=== PATIENT | male | born 1980 | race Caucasian/White ===

== ENCOUNTER → 2017-09-10 | Outpatient (CLI) | payer OTHER, MEDICARE | LOC: M SMT 13:35 | DX: M54.5 Low back pain (principal) ==

== ENCOUNTER 2017-10-13 12:07 | Emergency (ER) | payer MEDICARE, OTHER | END 2017-10-13 14:58 | disposition home or self-care (01) | LOC: M ED 12:07 | DX: M25.511 Pain in right shoulder (principal); R07.89 Other chest pain; G89.29 Other chronic pain; I10 Essential (primary) hypertension; G47.33 Obstructive sleep apnea (adult) (pediatric); K50.90 Crohn's disease, unspecified, without complications; F33.9 Major depressive disorder, recurrent, unspecified; E07.9 Disorder of thyroid, unspecified; Z88.0 Allergy status to penicillin; Z79.890 Hormone replacement therapy; Z79.899 Other long term (current) drug therapy | CPT/HCPCS: 71046 ==

== ENCOUNTER → 2018-06-24 | Outpatient (REF) ==
[~2018-06-24] MED LIST: HYDR-3715 PO; LEVO75TA4 PO; LISI40TA PO; MELO15TA28; PRAZ5CAP; ROBA500T PO; TRAZ-160; VENL75CA47; ZOLP10TA2
--- NOTE | 2018-06-25 16:16 | REP ---
LUMBOSACRAL SPINE: Three views of the lumbosacral spine are performed. There is no compression fracture or malalignment. There is no spondylolysis or spondylolisthesis. Disc spaces are well preserved. Posterior elements appear intact. IMPRESSION: Negative lumbosacral spine series. Electronically Signed by Les Rivera MD 06/26/2018 12:29 P
== END ==
LOC: M SMT 11:34
PROVIDERS: ATTEND Internal Medicine
DX: M51.36 Other intervertebral disc degeneration, lumbar region (principal)

== ENCOUNTER → 2018-07-28 | Outpatient (CLI) | payer MEDICARE, OTHER ==
[~2018-07-28] MED LIST changes: -TRAZ-160; +TRAZ-252
[2018-07-28 11:13] LABS: HEMATOCRIT 50.2 % (42.0-52.0); HEMOGLOBIN 17.2 g/dl (13.5-17.5); MEAN CORPUSCULAR HEMOGLOBIN 29.9 pg (27.0-33.0); MEAN CORPUSCULAR HGB CONC 34.3 g/dl (32.0-36.5); MEAN CORPUSCULAR VOLUME 87.2 fl (80.0-96.0); PLATELET COUNT, AUTOMATED 188 10^3/uL (150-450); RED BLOOD COUNT 5.76 10^6/uL (4.30-6.10)
--- NOTE | 2018-07-28 11:18 | REP ---
Chest two views HISTORY: Hypertension Comparison: 10/13/2017 The lungs are clear. The heart is normal in size. The pulmonary vasculature is normal in appearance. The bony structure is intact. IMPRESSION: No acute disease. Electronically Signed by Jean Barajas MD 07/28/2018 11:10 A
[2018-07-28 11:50] LABS: ALBUMIN 4.2 GM/DL (3.2-5.2); ALT/SGPT 56 U/L (12-78); BILIRUBIN,TOTAL 0.6 MG/DL (0.2-1.0); BLOOD UREA NITROGEN 11 MG/DL (7-18); CALCIUM LEVEL 9.3 MG/DL (8.5-10.1); CARBON DIOXIDE LEVEL 30 MEQ/L (21-32); CHLORIDE LEVEL 106 MEQ/L (98-107); CHOLESTEROL LEVEL 190 MG/DL (<200); CHOLESTEROL RISK RATIO 5.277 (<5); CREATININE FOR GFR 0.92 MG/DL (0.70-1.30); GLOMERULAR FILTRATION RATE > 60.0 (>60); GLUCOSE, FASTING 101 MG/DL (70-100); HDL CHOLESTEROL 36 MG/DL (>40); LDL CHOLESTEROL 104 MG/DL (<100); NON-HDL-C 154 MG/DL; POTASSIUM SERUM 4.6 MEQ/L (3.5-5.1); PROSTATIC SPECIFIC AG MONITOR 0.76 NG/ML (< 4.00); SODIUM LEVEL 142 MEQ/L (136-145); TESTOSTERONE 529 NG/DL (241-827); THYROXINE (T4) 5.6 UG/DL (4.5-12.0); TOTAL PROTEIN 7.4 GM/DL (6.4-8.2); TOTAL T3 93.3 NG/DL (60.0-181.0); TRIGLYCERIDES LEVEL 252 MG/DL (<150)
[2018-07-28 13:50] LABS: HEMOGLOBIN A1c 5.8 %
--- NOTE | 2018-07-28 20:51 | ECGEPIP ---
[facility] Test Date: 2018-07-28 Pat Name: SALBADOR GALDAMEZ Department: Room: - Gender: Male [employer]: : [id number] Requested By: Zuleyka Lopez Order Number: [id number] Reading MD: Cristobal Ralph Measurements Intervals [place] Rate: 66 P: 35 ME: 190 QRS: 37 QRSD: 96 T: 44 QT: 389 QTc: 409 Interpretive Statements SINUS RHYTHM Normal Electronically Signed on 07-28-2018 20:51:07 EDT by Cristobal Ralph
== END ==
LOC: M LAB 10:21
PROVIDERS: ATTEND Family Medicine
DX: I10 Essential (primary) hypertension (principal); R53.83 Other fatigue; E03.9 Hypothyroidism, unspecified

== ENCOUNTER → 2019-03-04 | Outpatient (CLI) | payer MEDICARE, OTHER ==
--- NOTE | 2019-03-04 14:28 | REP ---
SCROTAL ULTRASOUND: Real-time sonographic evaluation of the scrotum and contents performed. The testicles are normal in size and echotexture, right testicle measuring 5.1 x 2.5 x 3.1 and left testicle 4.8 x 2.5 x 3.4 cm. There is no testicular mass or torsion. Blood flow is seen in each testicle with duplex Doppler evaluation, RI right testicle 0.61 and left testicle 0.55. There is a tiny cyst in the head of the left epididymis 3 mm in diameter. Prominent venous structures are seen lateral to each testicle with slow flow, particularly during Valsalva maneuver compatible with small bilateral varicoceles. Tiny calcification is seen in the superior aspect of the right testicle. There are small bilateral hydroceles. IMPRESSION: No testicular mass or torsion. Small varicoceles and hydroceles. Electronically Signed by Les Rivera MD 03/04/2019 05:44 P
== END ==
LOC: M RAD 12:54
PROVIDERS: ATTEND Family Medicine
DX: N43.3 Hydrocele, unspecified (principal); N50.89 Other specified disorders of the male genital organs

== ENCOUNTER → 2021-12-19 | Outpatient (REF) | payer MEDICARE, OTHER ==
[~2021-12-19] MED LIST changes: -LISI40TA PO; +LISI40TA4 PO
== END ==
LOC: M LAB REF 15:56
PROVIDERS: ATTEND Physician Assistant
DX: B34.9 Viral infection, unspecified (principal)